=== PATIENT | female | born 1950 ===

== ENCOUNTER 2020-12-08 13:50 | Outpatient (CLI) | payer OTHER | END 2020-12-08 14:30 | disposition home or self-care (01) | LOC: PPH VACUNA 13:50 | PROVIDERS: ATTEND Emergency Medicine Pediatric Emergency Medicine | DX: Z23 Encounter for immunization (principal) ==

== ENCOUNTER 2020-12-12 17:06 | Inpatient (IN) | payer OTHER ==
[~2020-12-12] VITALS: Ht 170.2 cm; Wt 104.3 kg
[2020-12-12] MEDS ORDERED: [UNRECOGNIZED DRUG - OTHER] (17:32)
[2020-12-12] MEDS ORDERED: PRENISONA (17:32)
== END 2020-12-14 20:45 | disposition home or self-care (01) | DRG 812 ==
LOC: ER 17:06 → SEC-K 19:42 → MEDI 22:50
PROVIDERS: ADMIT Internal Medicine; ATTEND Internal Medicine
PROC: 30233N1 Transfusion of Nonautologous Red Blood Cells into Peripheral Vein, Percutaneous Approach (ICD-10-PCS; principal; 2020-12-14)
DX: D64.9 Anemia, unspecified (principal); K59.00 Constipation, unspecified; Z20.822 Contact with and (suspected) exposure to COVID-19; Z86.16 Personal history of COVID-19

== ENCOUNTER 2021-01-01 13:44 | Outpatient (CLI) | payer OTHER ==
[~2021-01-01 13:44] MED LIST: PRENISONA; [UNRECOGNIZED DRUG - OTHER]
== END 2021-01-01 13:56 | disposition home or self-care (01) ==
LOC: RAD 13:44
PROVIDERS: ATTEND Physical Medicine & Rehabilitation
DX: M54.59 Other low back pain (principal); M85.88 Other specified disorders of bone density and structure, other site

== ENCOUNTER 2021-08-14 13:12 | Outpatient (CLI) | payer OTHER | END 2021-08-14 13:22 | disposition home or self-care (01) | LOC: PPH VACUNA 13:12 | PROVIDERS: ATTEND Emergency Medicine Pediatric Emergency Medicine | DX: Z23 Encounter for immunization (principal) ==

== ENCOUNTER 2021-12-28 10:03 | Outpatient (CLI) | payer OTHER | END 2021-12-28 10:13 | disposition home or self-care (01) | LOC: PPH VACUNA 10:03 | PROVIDERS: ATTEND Emergency Medicine Pediatric Emergency Medicine | DX: Z23 Encounter for immunization (principal) ==